=== PATIENT | female | born 1955 | race African-American/Black ===

== ENCOUNTER 2024-10-16 11:42 | Emergency (ER) | payer MEDICARE, MEDICAID ==
[~2024-10-16] VITALS: Ht 165.1 cm; Wt 75.0 kg
[~2024-10-16 11:42] MED LIST: ALBU18HF2 PO; ASPI-1406 PO; ATOR40TA70 PO; BIMA2.5D4 EACHEYE; CYCL1DRO14 EACHEYE; DORZ10DR8 EACHEYE; EMPA10TA PO; FURO40TA5 MT; GABA-529 PO; INSU100I28 SQ; INSU100V3 SUBCUT; METO25TA6 PO; PANT40TA51 PO; SPIR25TA PO; SUCR1TAB PO
[2024-10-16 11:55] VITALS: TEMP 36.6; O2SAT 100
[2024-10-16] MEDS ORDERED: LIDO-53 TP (13:19)
[2024-10-16] MEDS ORDERED: BO1 TP (13:19)
[2024-10-16] MEDS ORDERED: ACET-2708 MT (13:19)
[2024-10-16 13:55] VITALS: BP 104/59; PULSE 71; RESP 16; O2SAT 100
[2024-10-18] MEDS ORDERED: METO25TA6 PO (15:51)
[2024-10-18] MEDS ORDERED: FURO-151 PO (15:51)
== END 2024-10-16 14:18 | disposition home or self-care (01) ==
LOC: ER 11:42
DX: S00.81XA Abrasion of other part of head, initial encounter (principal); E11.9 Type 2 diabetes mellitus without complications; E78.00 Pure hypercholesterolemia, unspecified; I10 Essential (primary) hypertension; I67.82 Cerebral ischemia; Z79.01 Long term (current) use of anticoagulants; Z79.4 Long term (current) use of insulin; Z79.621 Long term (current) use of calcineurin inhibitor; Z79.82 Long term (current) use of aspirin; Z79.84 Long term (current) use of oral hypoglycemic drugs; Z79.899 Other long term (current) drug therapy; Z90.710 Acquired absence of both cervix and uterus; Z98.1 Arthrodesis status; W06.XXXA Fall from bed, initial encounter; Y93.89 Activity, other specified; Y92.89 Other specified places as the place of occurrence of the external cause; Y99.8 Other external cause status
CPT/HCPCS: 99284